=== PATIENT | female | born 1960 | race Caucasian/White ===

== ENCOUNTER 2020-12-01 21:38 | Emergency (ER) | payer OTHER ==
[~2020-12-01] VITALS: Ht 162.6 cm; Wt 68.0 kg
[2020-12-01] MEDS ORDERED: NORVASC 2.5 MG2.5 M1 PO (21:47)
[2020-12-01] MEDS ORDERED: HYDROCHLOROTHIA25 M2 PO (21:47)
[2020-12-01] MEDS ORDERED: LIPITOR 10 MG10 M1 PO (21:47)
[2020-12-01] MEDS ORDERED: KEFLEX500 M1 PO (23:49)
[2020-12-01 23:59] VITALS: BP 135/75
== END 2020-12-01 23:59 | disposition home or self-care (01) ==
LOC: M.ERS 21:38
DX: S01.01XA Laceration without foreign body of scalp, initial encounter (principal); F10.129 Alcohol abuse with intoxication, unspecified; Y90.9 Presence of alcohol in blood, level not specified; I10 Essential (primary) hypertension; E78.5 Hyperlipidemia, unspecified; Z88.0 Allergy status to penicillin; W18.39XA Other fall on same level, initial encounter; Y93.89 Activity, other specified; Y92.89 Other specified places as the place of occurrence of the external cause; Y99.8 Other external cause status